=== PATIENT | female | born 1950 | race Caucasian/White ===

== ENCOUNTER 2016-10-01 12:18 | Day surgery (SDC) | payer MEDICARE ==
[~2016-10-01 12:18] MED LIST: Buffered Lidocaine 1% SYRIN* 3 ML/SYR SYRINGE INTRADERM ONE; Famotidine IV* 10 MG/ML 2 ML (20 mg) IV ONE; Glycopyrrolate IV* 0.2 MG/ML 1 ML VIAL ONE; KETAMINE HCL* 50 MG/ML 10 ML VIAL ONE; Midazolam* 1 MG/ML 5 ML VIAL (5 MG) ONE; Morphine INJ* 2 MG/ML 1 ML SYRINGE IV PRN; Neostigmine Methylsulfate* 2 MG/2 ML SYRINGE ONE; PROCHLORPERAZINE INJ 5 MG/ML 2 ML VIAL IV PRN; fentaNYL* 50 MCG/ML 2 ML VIAL (100 MCG VIAL) IV PRN; fentaNYL* 50 MCG/ML 2 ML VIAL (100 MCG VIAL) ONE; oxyCODONE/Acetamin 5/325 MG* TAB PO PRN
[2016-10-01] MEDS ORDERED: Propofol* 10 MG/ML 20 ML BTL IV PUSH ONE (12:33)
[2016-10-01] MEDS ORDERED: Lidocaine 2% PF* 5 ML VIAL ONE (12:33)
[2016-10-01] MEDS ORDERED: Famotidine IV* 10 MG/ML 2 ML (20 mg) ONE (12:35)
[2016-10-01] MEDS ORDERED: Clindamycin 900 MG IVPREMIX(* 900 MG/50 ML SDV IV ONE (12:35)
[2016-10-01] MEDS ORDERED: Lidocaine 1% INJ* 10 MG/ML 30 ML SDV ONE (13:04)
--- NOTE | 2016-10-01 14:45 | RAD ---
INDICATION: Central line placement COMPARISON: PET scan September 20, 2016 TECHNIQUE: An AP portable view obtained at 1425 hours is submitted. FINDINGS: Bones/Soft Tissues: There are no acute bony findings. There is left-sided PowerPort catheter terminating in the superior vena cava Cardiomediastinal: The heart is normal in size. There is a large retrocardiac density compatible with a partially intrathoracic stomach. Lungs: There are no infiltrates. There is no pneumothorax. Pleura: There are no pleural effusions. Other: None IMPRESSION: EXPECTED POSITION OF THE LEFT POWERPORT CATHETER. NO PNEUMOTHORAX. LUNGS CLEAR.
--- NOTE | 2016-10-01 14:47 | RAD ---
INDICATION: Central line placement COMPARISON: None FINDINGS: 35.1 seconds of fluoroscopy were provided for the surgical department. Fluoroscopic spot imaging of the chest were obtained for operative control and show an expected course of the right-sided central venous catheter. A follow-up chest x-ray is pending . CPT II Codes: 6045F (fluoro time doc)
[2016-10-01 15:01] VITALS: BP 145/74
--- NOTE | 2016-10-02 16:06 | OP ---
OPERATIVE REPORT: DATE OF OPERATION: 10/01/16 - [facility] DATE OF : 46 SURGEON: Vasiliy Cobb MD. ANESTHESIOLOGIST: Dr. Flood. ANESTHESIA: Local with monitored anesthesia care. PRE-OP DIAGNOSIS: Pancreatic cancer. POST-OP DIAGNOSIS: Pancreatic cancer. OPERATIVE PROCEDURE: Insertion of an 8-Tongan left chest wall percutaneously placed PowerPort. ESTIMATED BLOOD LOSS: Minimal. SPECIMENS: None. WOUND CLASSIFICATION: One. DRAINS: None. COMPLICATIONS: None. DESCRIPTION OF PROCEDURE: Written informed consent was obtained, the left and right chest were marked with indelible ink and preoperative antibiotics were administered. The patient was taken to the operating room and placed in the supine position. Sequential compression devices and a warming blanket were applied. The left and right chest and neck were prepped and draped in the usual sterile fashion. A time-out verification was completed. The patient was placed in Trendelenburg position and 1% lidocaine was used to infiltrate an area just below the left mid clavicular area and using an 18- gauge Cook needle, the subclavian vein was punctured on the first pass. There was good blood return, the guidewire was inserted without difficulty, confirmed to be into the superior vena cava by fluoroscopy. Next, a transverse incision was made several centimeters below the puncture site and a subcutaneous pocket was made inferior to this large enough to fit the port. The catheter was then tunneled from the puncture site to the pocket without difficulty. Next, using the sheath dilator peel-away system, the catheter was inserted over the guidewire into the central venous system and adjusted to be just above the junction of the superior vena cava and right atrium by fluoroscopy. The catheter was cut to the appropriate length and attached to the port which was placed into the pocket. It was flushed with saline and it withdrew blood well. Heparin was then used to flush the catheter. The port was secured in 2 places and the subcutaneous tissue with 3-0 Prolene sutures. Hemostasis was assured. Both the incision was closed with 3-0 and 4- 0 Polysorb suture. Steri-Strips and sterile occlusive dressings were applied. The patient tolerated the procedure well and was taken to recovery room in stable condition. Postprocedural chest x-ray showed the catheter to be in good position without evidence of pneumothorax. CC: [facility]; Dr. Makayla Ryder* [id number]/[facility] #: [id number] JESUSITA
== END 2016-10-01 15:17 | disposition home or self-care (01) ==
LOC: OR 12:18
PROVIDERS: ATTEND Surgery
DX: C25.9 Malignant neoplasm of pancreas, unspecified (principal); C78.7 Secondary malignant neoplasm of liver and intrahepatic bile duct; K21.9 Gastro-esophageal reflux disease without esophagitis; Z87.891 Personal history of nicotine dependence
CPT/HCPCS: 71010; 76000; C1788; J1642; J2001; J2250; J2704; J3010

== ENCOUNTER 2016-10-18 17:13 | Emergency (ER) | payer MEDICARE, OTHER ==
--- NOTE | 2016-10-18 19:22 | RAD ---
HISTORY: Fever COMPARISONS: October 01, 2016 VIEWS:1: Single frontal portable view of the chest at 7:09 PM FINDINGS: LINES AND TUBES: There is left-sided chest port from a subclavian approach with the tip overlying the superior vena cava CARDIOMEDIASTINAL SILHOUETTE: The cardiomediastinal silhouette is normal for portable technique. PLEURA: The costophrenic angles are sharp. No pleural abnormalities are noted. LUNG PARENCHYMA: The lungs are clear. ABDOMEN: There is a large hiatal hernia BONES AND SOFT TISSUES: No bone or soft tissue abnormalities are noted. IMPRESSION: 1. LINES AND TUBES ABOVE. 2. HIATAL HERNIA. 3. NO ACTIVE CARDIOPULMONARY DISEASE
[2016-10-18] MEDS ORDERED: Vancomycin(*) 1,000 MG in NS 0.9% 250 ML* 250 ML IVPB ONE (19:41)
[2016-10-18] MEDS ORDERED: NS 0.9% 1000 ML* 2,000 ML IV ONE (19:41)
[2016-10-18] MEDS ORDERED: Acetaminophen TAB* 325 MG PO ONE (19:41)
[2016-10-18] MEDS ORDERED: Ertapenem* 1 GM in NS 0.9% 50 ML* 50 ML IVPB ONE (19:43)
[2016-10-18 20:42] LABS: Hematocrit 31 % (35-47); Mean Corpuscular HGB Conc 33 g/dl (31-36); Mean Corpuscular Hemoglobin 26 pg (27-31); Mean Corpuscular Volume 81 fL (80-97); Mean Platelet Volume 8 um3 (7.4-10.4); Red Cell Distribution Width 15 % (10.5-15)
[2016-10-18 20:44] LABS: Comments Flag Yes; White Blood Count 3.1 10^3/ul (3.5-10.8)
[2016-10-18 21:00] LABS: BUN/Creatinine Ratio 23.4 (8-20); Calcium 9.5 mg/dL (8.6-10.3); EGFR Non-African American 92.6 (>60); Globulin 3.2 g/dL (2-4); Potassium 4.4 mmol/L (3.5-5.0); Total Bilirubin 1.1 mg/dL (0.2-1.0); Total Protein 6.2 g/dL (6.4-8.9)
[2016-10-18 21:02] LABS: Troponin I 0.01 ng/mL (<0.04)
[2016-10-18 21:45] LABS: Urine Bacteria 1+ (Absent); Urine Bilirubin Negative (Negative); Urine Glucose Negative (Negative); Urine Nitrite Negative (Negative)
[2016-10-18] MEDS ORDERED: NS 0.9% 250 ML* 250 ML ONE (22:23)
[2016-10-18] MEDS ORDERED: NS 0.9% 50 ML* 50 ML ONE (22:23)
[2016-10-18] MEDS ORDERED: Levofloxacin TAB* 500 MG PO ONE (22:25)
--- NOTE | 2016-10-18 23:43 | ED ---
Bala Velez Aidan, scribed for Jose Schultz on 10/18/16 at 1951 . HPI Febrile Illness - HPI Summary HPI Summary: 65 y/o female presents to the ED with a complaint of an acute, constant, mild fever of 100.5 that began this morning. 2 days ago, she was administered 75% of her chemotherapy for her metastatic pancreatic cancer. She was told by her oncologist to come to the ED if she gets a fever of 100.5 or higher. Associated symptoms include some mild (3/10) pain between the shoulder blades and some lower abdominal pain. She denies any CP, SOB, diarrhea, or emesis. - History of Current Complaint Chief Complaint: EDFever Time Seen by Provider: 10/18/16 19:12 Hx Obtained From: Patient Onset/Duration: Started Hours Ago, Still Present Time of Onset: 09:00 - she first took her temperature around 0900 this morning. Timing: Constant Initial Severity: Mild Current Severity: Mild Pain Intensity: 3 Pain Scale Used: 0-10 Numeric Aggravating Factors: Unknown Alleviating Factors: Other: - unknown Associated Signs and Symptoms: Other: - some pain between the shoulder blades and some abdominal pain Related History: Exposure to: - chemotherapy 2 days ago - Risk Factors Serious Bacterial Infection Risk Factors: Chemotherapy - Allergy/Home Medications Allergies/Adverse Reactions: Allergies Allergy/AdvReac Type Severity Reaction Status Date / Time Penicillin G Allergy Unknown See Comment Verified 10/01/16 12:51 PMH/Surg Hx/FS Hx/Imm Hx Endocrine/Hematology History: Denies: Hx Diabetes Cardiovascular History: Denies: Hx Hypertension, Hx Pacemaker/ICD Respiratory History: Denies: Hx Asthma GI History: Reports: Hx Hiatal Hernia, Hx Ulcer - stomach Sensory History: Reports: Hx Cataracts - left, Hx Contacts or Glasses - glasses Denies: Hx Hearing Aid Opthamlomology History: Reports: Hx Cataracts - left, Hx Contacts or Glasses - glasses Psychiatric History: Denies: Hx Panic Disorder - Cancer History Cancer Type, Location and Year: NEW Hx Chemotherapy: No - having power port placed - Surgical History Surgery Procedure, Year, and Place: TONSILS,GB,APPY Hx Anesthesia Reactions: No Infectious Disease History: No Infectious Disease History: Denies: Traveled Outside the [place] in Last 30 Days - Family History Known Family History: Positive: Other - [place] - Social History Occupation: Employed Full-time Lives: With Family Alcohol Use: None Substance Use Type: Reports: None Smoking Status (MU): Former Smoker Review of Systems Positive: Fever - 100.5. Negative: Chills, Fatigue, Skin Diaphoresis Eyes: Negative ENT: Negative Cardiovascular: Negative Respiratory: Negative Positive: Abdominal Pain. Negative: Vomiting, Diarrhea, Nausea Genitourinary: Negative Positive: Arthralgia - pain between shoulder blades. Negative: Myalgia, Decreased ROM, Edema Skin: Negative Neurological: Negative Psychological: Normal All Other Systems Reviewed And Are Negative: Yes Physical Exam Triage Information Reviewed: Yes Vital Signs On Initial Exam: Initial Vitals Temp Pulse Resp BP 100.2 F 125 20 154/69 10/18/16 17:15 10/18/16 17:15 10/18/16 17:15 10/18/16 17:15 Vital Signs Reviewed: Yes Appearance: Positive: Well-Appearing, No Pain Distress Skin: Positive: Warm, Skin Color Reflects Adequate Perfusion, Dry Head/Face: Positive: Normal Head/Face Inspection Eyes: Positive: Normal ENT: Positive: Normal ENT inspection Neck: Positive: Supple, Nontender Respiratory/Lung Sounds: Positive: Clear to Auscultation, Breath Sounds Present Cardiovascular: Positive: Other - catheter on left chest. Negative: RRR - tachycardia Abdomen Description: Positive: Nontender, Soft Bowel Sounds: Positive: Present Musculoskeletal: Positive: Normal Neurological: Positive: Normal, Alert, Oriented to Person Place, Time Psychiatric: Positive: Affect/Mood Appropriate - Cristela Coma Scale Coma Scale Total: 15 Diagnostics - Vital Signs Vital Signs Temp Pulse Resp BP Pulse Ox 10/18/16 19:08 100.8 F 110 20 158/78 99 10/18/16 19:00 107 17 142/68 99 10/18/16 18:58 100.8 F 110 20 158/78 99 10/18/16 18:51 108 23 158/78 99 10/18/16 18:50 111 99 10/18/16 17:15 100.2 F 125 20 154/69 - Laboratory Lab Results: Lab Results 10/18/16 10/18/16 10/18/16 Range/Units 20:25 20:25 20:25 WBC 3.1 L (3.5-10.8) 10^3/ul RBC 3.80 L (4.0-5.4) 10^6/ul Hgb 10.0 L (12.0-16.0) g/dl Hct 31 L (35-47) % MCV 81 (80-97) fL MCH 26 L (27-31) pg MCHC 33 (31-36) g/dl RDW 15 (10.5-15) % Plt Count 128 L (150-450) 10^3/ul MPV 8 (7.4-10.4) um3 Neut % (Auto) 75.6 (38-83) % Lymph % (Auto) 21.0 L (25-47) % [place] % (Auto) 1.1 (1-9) % Eos % (Auto) 2.1 (0-6) % Baso % (Auto) 0.2 (0-2) % Absolute Neuts (auto) 2.4 (1.5-7.7) 10^3/ul Absolute Lymphs (auto) 0.7 L (1.0-4.8) 10^3/ul Absolute Monos (auto) 0 (0-0.8) 10^3/ul Absolute Eos (auto) 0.1 (0-0.6) 10^3/ul Absolute Basos (auto) 0 (0-0.2) 10^3/ul Absolute Nucleated RBC 0 10^3/ul Nucleated RBC % 0 INR (Anticoag Therapy) 0.99 (0.89-1.11) APTT 28.7 (26.0-36.3) seconds Sodium 133 (133-145) mmol/L Potassium 4.4 (3.5-5.0) mmol/L Chloride 101 (101-111) mmol/L Carbon Dioxide 24 (22-32) mmol/L Anion Gap 8 (2-11) mmol/L BUN 15 (6-24) mg/dL Creatinine 0.64 (0.51-0.95) mg/dL Est GFR ( Amer) 119.0 (>60) Est GFR (Non-Af Amer) 92.6 (>60) BUN/Creatinine Ratio 23.4 H (8-20) Glucose 119 H (70-100) mg/dL Lactic Acid (0.5-2.0) mmol/L Calcium 9.5 (8.6-10.3) mg/dL Total Bilirubin 1.10 H (0.2-1.0) mg/dL AST 222 H (13-39) U/L ALT 205 H (7-52) U/L Alkaline Phosphatase 141 H (34-104) U/L Troponin I 0.01 (<0.04) ng/mL Total Protein 6.2 L (6.4-8.9) g/dL Albumin 3.0 L (3.2-5.2) g/dL Globulin 3.2 (2-4) g/dL Albumin/Globulin Ratio 0.9 L (1-3) Urine Color Urine Appearance Urine pH (5-9) Ur Specific [place] (1.010-1.030) Urine Protein (Negative) Urine Ketones (Negative) Urine Blood (Negative) Urine Nitrate (Negative) Urine Bilirubin (Negative) Urine Urobilinogen (Negative) Ur Leukocyte Esterase (Negative) Urine WBC (Auto) (Absent) Urine RBC (Auto) (Absent) Ur Squamous Epith Cells (Absent) Urine Bacteria (Absent) Urine Glucose (Negative) Influenza A (Rapid) (Negative) Influenza B (Rapid) (Negative) 10/18/16 10/18/16 10/18/16 Range/Units 20:25 20:31 21:20 WBC (3.5-10.8) 10^3/ul RBC (4.0-5.4) 10^6/ul Hgb (12.0-16.0) g/dl Hct (35-47) % MCV (80-97) fL MCH (27-31) pg MCHC (31-36) g/dl RDW (10.5-15) % Plt Count (150-450) 10^3/ul MPV (7.4-10.4) um3 Neut % (Auto) (38-83) % Lymph % (Auto) (25-47) % [place] % (Auto) (1-9) % Eos % (Auto) (0-6) % Baso % (Auto) (0-2) % Absolute Neuts (auto) (1.5-7.7) 10^3/ul Absolute Lymphs (auto) (1.0-4.8) 10^3/ul Absolute Monos (auto) (0-0.8) 10^3/ul Absolute Eos (auto) (0-0.6) 10^3/ul Absolute Basos (auto) (0-0.2) 10^3/ul Absolute Nucleated RBC 10^3/ul Nucleated RBC % INR (Anticoag Therapy) (0.89-1.11) APTT (26.0-36.3) seconds Sodium (133-145) mmol/L Potassium (3.5-5.0) mmol/L Chloride (101-111) mmol/L Carbon Dioxide (22-32) mmol/L Anion Gap (2-11) mmol/L BUN (6-24) mg/dL Creatinine (0.51-0.95) mg/dL Est GFR ( Amer) (>60) Est GFR (Non-Af Amer) (>60) BUN/Creatinine Ratio (8-20) Glucose (70-100) mg/dL Lactic Acid 0.7 (0.5-2.0) mmol/L Calcium (8.6-10.3) mg/dL Total Bilirubin (0.2-1.0) mg/dL AST (13-39) U/L ALT (7-52) U/L Alkaline Phosphatase (34-104) U/L Troponin I (<0.04) ng/mL Total Protein (6.4-8.9) g/dL Albumin (3.2-5.2) g/dL Globulin (2-4) g/dL Albumin/Globulin Ratio (1-3) Urine Color Yellow Urine Appearance Clear Urine pH 5.0 (5-9) Ur Specific [place] 1.024 (1.010-1.030) Urine Protein Negative (Negative) Urine Ketones 1+ H (Negative) Urine Blood Negative (Negative) Urine Nitrate Negative (Negative) Urine Bilirubin Negative (Negative) Urine Urobilinogen Negative (Negative) Ur Leukocyte Esterase Trace H (Negative) Urine WBC (Auto) 1+(6-10/hpf) H (Absent) Urine RBC (Auto) Trace(0-2/hpf) (Absent) Ur Squamous Epith Cells Present H (Absent) Urine Bacteria 1+ H (Absent) Urine Glucose Negative (Negative) Influenza A (Rapid) Negative (Negative) Influenza B (Rapid) Negative (Negative) Result Diagrams: 10/18/16 20:25 10/18/16 20:25 Lab Statement: Any lab studies that have been ordered have been reviewed, and results considered in the medical decision making process. - Radiology CHEST XR Xray Interpretation: No Acute Changes - IMPRESSION: 1. LINES AND TUBES ABOVE. 2. HIATAL HERNIA. 3. NO ACTIVE CARDIOPULMONARY DISEASE Radiology Interpretation Completed By: Radiologist Course/Dx - Course Course Of Treatment: This is a 65 y/o female with a mild fever of 100.5. She was given 75% of her chemotherapy for her pancreatic cancer 2 days ago and was told by her oncologist to be seen if she develops a fever of 100.5 or higher. Chest x-ray results did not indicate any changes. The patient will be diagnosed with a fever and a UTI. d/w oncologist who recommended to discharge the pt home on abx. - Diagnoses Provider Diagnoses: UTI (urinary tract infection), Fever - Provider Notifications Discussed Care Of Patient With: Dr. Asencio (Hospitalist) Time Discussed With Above Provider: 21:53 - Dr. Asencio advised speaking with cardiology and oncology. Discharge - Discharge Plan Condition: Stable Disposition: HOME Discharge Disposition Comment: Please follow up with your primary care provider within 2 days. Prescriptions: Levofloxacin TAB* [Levaquin TAB*] 500 mg PO DAILY #4 tab Patient Education Materials: Fever in Adults (ED), Urinary Tract Infection in Women (ED) Referrals: Lisandra Jones MD [Primary Care Provider] - The documentation as recorded by the Bala granger Aidan accurately reflects the service I personally performed and the decisions made by Antoine ortiz Emmanuel.
[2016-10-19 00:49] VITALS: BP 145/64
== END 2016-10-19 00:48 | disposition home or self-care (01) ==
LOC: ED 17:13
DX: N39.0 Urinary tract infection, site not specified (principal); K44.9 Diaphragmatic hernia without obstruction or gangrene; R50.9 Fever, unspecified; Z87.891 Personal history of nicotine dependence
CPT/HCPCS: 36415; 71010; 80053; 81003; 81015; 83605; 84484; 85025; 85610; 85730; 87040; 87086; 87502; 96365; 99283; A9270-GY; J1335; J3370

== ENCOUNTER 2017-03-22 23:57 | Emergency (ER) | payer MEDICARE, OTHER ==
[2017-03-23] MEDS ORDERED: HYDROmorphone INJ* 1 MG/ML CARPUJECT SYRINGE IV ONE (00:21)
[2017-03-23] MEDS ORDERED: Ondansetron INJ* 2 MG/ML VIAL IV ONE (00:21)
[2017-03-23] MEDS ORDERED: NS 0.9% 1000 ML* 1,000 ML IV ONE (00:21)
[2017-03-23 01:07] LABS: Hematocrit 29 % (35-47); Hemoglobin 9.6 g/dl (12.0-16.0); Mean Corpuscular HGB Conc 34 g/dl (31-36); Mean Corpuscular Hemoglobin 31 pg (27-31); Mean Corpuscular Volume 91 fL (80-97); Mean Platelet Volume 8 um3 (7.4-10.4); Red Blood Count 3.14 10^6/ul (4.0-5.4); Red Cell Distribution Width 18 % (10.5-15)
[2017-03-23 01:14] LABS: Comments Flag Yes
[2017-03-23 01:15] LABS: White Blood Count 3.4 10^3/ul (3.5-10.8)
[2017-03-23 01:27] LABS: Albumin 2.8 g/dL (3.2-5.2); Calcium 8.7 mg/dL (8.6-10.3); EGFR African American 89.2 (>60); EGFR Non-African American 69.3 (>60); Globulin 2.9 g/dL (2-4); Potassium 3.6 mmol/L (3.5-5.0); Total Bilirubin 0.5 mg/dL (0.2-1.0); Total Protein 5.7 g/dL (6.4-8.9)
[2017-03-23] MEDS ORDERED: Iohexol 300* (CONTRAST) 10 ML SDV IV ONE (02:00)
[2017-03-23 02:02] LABS: BUN/Creatinine Ratio 12.2 (8-20)
[2017-03-23] MEDS ORDERED: HYDROmorphone INJ* 1 MG/ML CARPUJECT SYRINGE IV SLOW PU ONE (02:52)
[2017-03-23 04:28] LABS: Urine Bacteria Absent (Absent); Urine Bilirubin Negative (Negative); Urine Glucose Negative (Negative); Urine Nitrite Negative (Negative)
[2017-03-23] MEDS ORDERED: Tamsulosin CAP* 0.4 MG PO ONE (05:11)
[2017-03-23 05:33] VITALS: BP 120/61
--- NOTE | 2017-03-23 06:28 | ED ---
Lloyd Velez Rebecca, scribed for Javier Schultzuel on 03/23/17 at 0023 . Abdominal Pain/Female - HPI Summary HPI Summary: Pt is a 66 y/o F who presents to ED c/o severe abdominal pain. Pain began yesterday and has been intermittent since onset, returning tonight at 1830. Yesterday, pt took an Oxycodone which resolved sx though, tonight, 2 Oxycodone have not changed sx. Pain is in the LLQ with radiation to the back and is ranked 11/10 when asked. Sx aggravated and alleviated by nothing. Denies N/V/D, constipation and rash. Pt was referred to [facility] [place] by Dr. Morocho and she is currently undergoing chemotherapy Tx for pancreatic CA, with her last session being [address] was about 1 month ago. No PMHx kidney stones. - History of Current Complaint Chief Complaint: EDAbdPain Stated Complaint: ABD AND BACK PAIN Time Seen by Provider: 03/23/17 00:07 Hx Obtained From: Patient Onset/Duration: Lasting Days - Yesterday, Still Present Timing: Intermittent Episode Lasting Severity Currently: Severe Pain Intensity: 10 Pain Scale Used: 0-10 Numeric Location: Discrete At: LLQ Radiates: Yes Radiates to: Back Aggravating Factor(s): Nothing Alleviating Factor(s): Nothing Associated Signs and Symptoms: Positive: Negative. Negative: Constipation, Nausea, Vomiting, Diarrhea Allergies/Adverse Reactions: Allergies Allergy/AdvReac Type Severity Reaction Status Date / Time Penicillin G Allergy Unknown See Comment Verified 01/31/17 07:38 PMH/Surg Hx/FS Hx/Imm Hx Endocrine/Hematology History: Denies: Hx Diabetes Cardiovascular History: Denies: Hx Hypertension, Hx Pacemaker/ICD Respiratory History: Denies: Hx Asthma GI History: Reports: Hx Hiatal Hernia, Hx Ulcer - stomach History: Denies: Hx Renal Disease Sensory History: Reports: Hx Cataracts - left, Hx Contacts or Glasses - glasses Denies: Hx Hearing Aid Opthamlomology History: Reports: Hx Cataracts - left, Hx Contacts or Glasses - glasses Psychiatric History: Denies: Hx Panic Disorder - Cancer History Cancer Type, Location and Year: pancreas Hx Chemotherapy: No - having power port placed - Surgical History Surgery Procedure, Year, and Place: TONSILS,GB,APPY Hx Anesthesia Reactions: No Infectious Disease History: No Infectious Disease History: Denies: Traveled Outside the [place] in Last 30 Days - Family History Known Family History: Positive: Other - [place] - Social History Alcohol Use: None Substance Use Type: Reports: None Smoking Status (MU): Former Smoker Review of Systems Positive: Abdominal Pain, Other - NEGATIVE: Constipation. Negative: Vomiting, Diarrhea, Nausea Negative: Rash All Other Systems Reviewed And Are Negative: Yes Physical Exam - Summary Physical Exam Summary: Appearance: Well appearing Skin: warm, dry, reflects adequate perfusion Head/face: normal Eyes: EOMI, WILY ENT: normal Neck: supple, nontender Respiratory: CTA, breath sounds present Cardiovascular: RRR, pulses symmetrical Abdomen: tenderness in the LLQ, soft Bowel: present Musculoskeletal: normal, strength/ROM intact Neuro: normal, sensory motor intact, A&Ox3 Triage Information Reviewed: Yes Vital Signs On Initial Exam: Initial Vitals Temp Pulse Resp BP Pulse Ox 98.1 F 79 14 150/56 98 03/23/17 00:02 03/23/17 00:02 03/23/17 00:02 03/23/17 00:02 03/23/17 00:02 Vital Signs Reviewed: Yes Diagnostics - Vital Signs Vital Signs Temp Pulse Resp BP Pulse Ox 03/23/17 00:02 98.1 F 79 14 150/56 98 - Laboratory Result Diagrams: 03/23/17 00:55 03/23/17 00:55 Lab Statement: Any lab studies that have been ordered have been reviewed, and results considered in the medical decision making process. - CT CT Abd/Pel CT Interpretation Completed By: Radiologist - 4 mm stone appearing at left UVJ and causing minimal hydronephrosis. Small left renal stones and a 6 mm dependent stone in left renal pelvis. Cortical thinning lower pole right kidney. Trace right pleural effusion, simliar to prior exam. New trace left pleural effusion. Large hiatal hernia again seen, upper extent incompletely visualized. Diverticulosis colon without acute diverticulitis. No bowel obstruction, colitis, or free air. Appendix not seen. Trace ascites. Unremarkable pancreas. Gallbladder not seen. Enlarged uterus. Small right inguinal region hernia and tiny unmbilical hernia, each contianing fat. ED physician reviewed radiology report and agrees. Re-Evaluation - Re-Evaluation First Eval Re-Evaluation Time: 03:58 Comment: Discussed CT results. Abdominal Pain Fem Course/Dx - Course Course Of Treatment: Pt is a 66 y/o F who presents to ED c/o intermirrent severe abdominal pain since yesterday, returning tonight at 1830. Yesterday, pt took an Oxycodone which resolved sx though, tonight, 2 Oxycodone have not changed sx. Pain is in the LLQ with radiation to the back and is ranked 11/10 when asked. Denies N/V/D, constipation and rash. Pt was referred to [facility] tonight by Dr. Morocho and she is currently undergoing chemotherapy Tx for pancreatic CA, with her last session being 2 days ago. No PMHx kidney stones. UA is negative for UTI, Troponin of 0.00. CT Abd/Pel reveals 4 mm stone appearing at left UVJ and causing minimal hydronephrosis. In the ED course, pt received Zofran, Flomax, Dilaudid and fluids. She will be D/C to home with Dx of renal calculi with Rx for Flomax and a follow up with her PCP and urology. She understands and agrees. Jay noted. Elevated BP noted. - Diagnoses Provider Diagnoses: Renal calculi Discharge - Discharge Plan Condition: Stable Disposition: HOME Prescriptions: Tamsulosin CAP* [Flomax CAP*] 0.4 mg PO DAILY #20 cap Patient Education Materials: Kidney Stones (ED) Referrals: Sharmin Malone MD [Primary Care Provider] - 3 Days Jone Solo MD [Medical Doctor] - The documentation as recorded by the Lloyd granger Rebecca accurately reflects the service I personally performed and the decisions made by , Jose Schultz.
--- NOTE | 2017-03-23 08:21 | RAD ---
CLINICAL HISTORY: Left lower quadrant tenderness, history of pancreatic cancer COMPARISON: January 31, 2017 TECHNIQUE: Multiple contiguous axial CT scans were obtained of the abdomen and pelvis after the administration of intravenous contrast. Coronal and sagittal multiplanar reformations are submitted for review. Oral contrast was administered. Delayed images were obtained through the abdomen and pelvis. FINDINGS: LUNG BASES: There is a large right-sided hiatal hernia LIVER: The liver is heterogeneous with patchy hypoattenuation within the right lobe, best seen on axial image 21 and 25. This has developed from the most recent previous examination. BILE DUCTS: There is intrahepatic biliary dilatation. There is dilatation of the common duct extending to the ampulla. This is progressed from the previous examination. GALLBLADDER: The gallbladder is not clearly visualized. PANCREAS: The pancreas is normal, without mass or ductal dilatation. SPLEEN: Normal in size and appearance. UPPER GI TRACT: Evaluation of the gastrointestinal tract is limited by incomplete gastric distention. As noted above, there is a large saroj hernia containing much of the body of the stomach. SMALL BOWEL AND MESENTERY: The small bowel is normal in contour, course, and caliber. There is no obstruction or dilatation. COLON: There are multiple diverticula of the sigmoid colon. There is no pericolonic inflammatory change. ADRENALS: Normal bilaterally. KIDNEYS: There are left renal stones measuring up to 0.7 cm in size. There is pelviectasis and hydroureter on the left, with a 0.5 cm calculus of the left UVJ. BLADDER: The bladder isn't completely distended. As noted above, there is a 0.4 cm calculus of the left UVJ. PELVIC ORGANS: The uterus is diffusely heterogeneously enlarged congested of fibroids. AORTA: There is calcific atherosclerotic disease of the abdominal aorta and its branches, without aneurysmal dilatation IVC: Unremarkable LYMPH NODES: There is no lymphadenopathy by size criteria. ABDOMINAL WALL: There is a small fat-containing right inguinal hernia. There is a small fat-containing umbilical hernia. BONES AND SOFT TISSUES: Degenerative changes are noted of the spine OTHER: There is trace amount of ascites IMPRESSION: 1. LEFT NEPHROLITHIASIS, INCLUDING A 0.4 CM LEFT UVJ CALCULUS, WITH LEFT-SIDED HYDRONEPHROSIS. 2. LARGE HIATAL HERNIA. 3. DIVERTICULOSIS WITHOUT PERICOLONIC INFLAMMATORY CHANGE. 4. TRACE ASCITES. 5. BILIARY DILATATION, INCREASING FROM JANUARY 31, 2017. 6. PATCHY HETEROGENEOUS HYPOATTENUATION OF THE LIVER. 7. ENLARGED UTERUS SUGGESTIVE OF UTERINE FIBROIDS.
== END 2017-03-23 05:49 | disposition home or self-care (01) ==
LOC: ED 23:57
DX: N20.0 Calculus of kidney (principal); R10.32 Left lower quadrant pain; Z87.891 Personal history of nicotine dependence
CPT/HCPCS: 36415; 74177; 80053; 81003; 81015; 83605; 83690; 84484; 85025; 85610; 85730; 87086; 99283; J1170; J2405; Q9967

== ENCOUNTER 2017-04-05 09:18 | Day surgery (SDC) | payer MEDICARE, OTHER ==
--- NOTE | 2017-04-02 22:54 | HP ---
CC: Dr. Makayla Ryder; Dr. Malone * HISTORY AND PHYSICAL: DATE OF PLANNED ADMISSION AND SURGERY: 04/05/17 HISTORY OF PRESENT ILLNESS: Mrs. Hernandez is a 66-year-old white female who is admitted with left ureteral and left renal calculi, for cystoscopy, left ureteroscopy, laser lithotripsy, and left ureteral stent placement. Mrs. Hernandez was diagnosed recently with stage IV pancreatic cancer with liver metastasis. She also had partial obstruction of her duodenum from her tumor that was managed by balloon dilation at the [facility]. She is on systemic chemotherapy and followed by Dr. Ryder. She presented to the emergency room on 03/23/17 with acute left abdominal and flank pain. She denied having any fever or chills. She had a CT of the abdomen and pelvis with oral and IV contrast. The study showed multiple liver lesions, a 7 mm calculus in the left kidney, and a 5 mm calculus at the left ureterovesical junction. She was managed conservatively with pain medication and referred to our office for evaluation. She has been feeling comfortable from her kidney and has had no recurrence of the acute pain. The patient had a renal ultrasound in our office. The study showed mild left hydronephrosis and a 1 cm calculus at the left ureteropelvic junction, and there was a 6 mm calculus in the distal left ureter, about 2 cm from the ureterovesical junction. PAST MEDICAL HISTORY AND SYSTEM REVIEW: As described above. MEDICATIONS: The patient is on systemic chemotherapy. She is on : 1. Prilosec 20 mg twice a day. 2. Lasix 10 mg daily. 3. Reglan 10 mg 4 times per day. 4. Oxycodone as needed for pain. 5. She is anticoagulated with Lovenox. ALLERGIES: She is allergic to PENICILLIN. PHYSICAL EXAMINATION GENERAL: White female, who looks pale and older than her age. VITAL SIGNS: Blood pressure 140/80, pulse of 76, temperature of 96. LUNGS: Clear. HEART: Regular and rhythmic, no murmurs. ABDOMEN: Soft. No tenderness. There is mild left CVA tenderness. IMPRESSION: 1. Left renal colic caused by a 1 cm calculus at the left ureteropelvic junction and a 6 mm calculus in the distal left ureter. 2. Metastatic pancreatic carcinoma, on systemic chemotherapy. PLAN/RECOMMENDATIONS: Plan is for left ureteroscopy, laser lithotripsy of the distal left ureteral calculus, and placement of left ureteral stent. Considering the poor prognosis with her metastatic pancreatic carcinoma, the left stent will be kept on a long-term basis and will not pursue the treatment of the renal calculus at this time. I discussed the above plans with the patient and all her questions were answered. [id number]/[facility] #: [id number] MTDD
[~2017-04-05 09:18] MED LIST changes: +Buffered Lidocaine 0.9% SYRIN* 5 ML/SYR SYRINGE INTRADERM ONE; -Buffered Lidocaine 1% SYRIN* 3 ML/SYR SYRINGE INTRADERM ONE; +Dexamethasone IV* 4 MG/ML 1 ML (4 MG) IV SLOW PU ONE; -Glycopyrrolate IV* 0.2 MG/ML 1 ML VIAL ONE; -KETAMINE HCL* 50 MG/ML 10 ML VIAL ONE; -Midazolam* 1 MG/ML 5 ML VIAL (5 MG) ONE; -Morphine INJ* 2 MG/ML 1 ML SYRINGE IV PRN; -Neostigmine Methylsulfate* 2 MG/2 ML SYRINGE ONE; -PROCHLORPERAZINE INJ 5 MG/ML 2 ML VIAL IV PRN; -fentaNYL* 50 MCG/ML 2 ML VIAL (100 MCG VIAL) IV PRN; -fentaNYL* 50 MCG/ML 2 ML VIAL (100 MCG VIAL) ONE; -oxyCODONE/Acetamin 5/325 MG* TAB PO PRN
[2017-04-05] MEDS ORDERED: Dexamethasone IV* 4 MG/ML 1 ML (4 MG) ONE (09:40)
[2017-04-05] MEDS ORDERED: Famotidine IV* 10 MG/ML 2 ML (20 mg) ONE (09:41)
[2017-04-05] MEDS ORDERED: Buffered Lidocaine 0.9% SYRIN* 5 ML/SYR SYRINGE ONE (09:41)
[2017-04-05] MEDS ORDERED: Levofloxacin 750 MG IVPREMIX(* 750 MG/150 ML BAG ONE (09:41)
[2017-04-05] MEDS ORDERED: Iohexol 180 (CONTRAST) 10 ML SDV IV ONE (10:36)
[2017-04-05] MEDS ORDERED: oxyCODONE/Acetamin 5/325 MG* TAB PO PRN (10:38)
[2017-04-05] MEDS ORDERED: fentaNYL* 50 MCG/ML 2 ML VIAL (100 MCG VIAL) IV PRN (10:38)
[2017-04-05] MEDS ORDERED: Ondansetron INJ* 2 MG/ML VIAL IV PRN (10:38)
[2017-04-05] MEDS ORDERED: DiMENhydriNATE IV* 50 MG/ML VIAL IV PUSH PRN (10:38)
[2017-04-05] MEDS ORDERED: Propofol* 10 MG/ML 20 ML BTL IV PUSH ONE (10:45)
[2017-04-05] MEDS ORDERED: Midazolam* 1 MG/ML 5 ML VIAL (5 MG) ONE (10:45)
[2017-04-05] MEDS ORDERED: Ondansetron INJ* 2 MG/ML VIAL ONE (10:45)
[2017-04-05] MEDS ORDERED: Chloroprocaine 2%* 20 ML VIAL ONE (10:45)
[2017-04-05 14:03] VITALS: BP 137/72
--- NOTE | 2017-04-05 15:07 | RAD ---
INDICATION: Left ureteral stent insertion COMPARISON: None FINDINGS: 5 seconds of fluoroscopy were provided for the urology department. Fluoroscopic spot imaging of the abdomen were obtained for operative control and show placement of a left ureteral stent in expected position . CPT II Codes: 6045F (fluoro time doc)
--- NOTE | 2017-04-06 02:00 | OP ---
CC: Dr. Ryder OPERATIVE REPORT: DATE OF OPERATION: 04/05/17 DATE OF : 46 SURGEON: Jone Solo MD ANESTHESIOLOGIST: Dr. Hernandez. ANESTHESIA: Spinal. PRE-OP DIAGNOSES: 1. Left renal calculus (1 cm). 2. Distal left ureteral calculus (6 mm). POST-OP DIAGNOSES: 1. Left renal calculus (1 cm). 2. Distal left ureteral calculus (6 mm). OPERATIVE PROCEDURE: 1. Cystoscopy. 2. Left ureteroscopy and pyeloscopy. 3. Laser lithotripsy of distal left ureteral calculus. 4. Left retrograde pyelography and placement of left ureteral stent (black silicone, 7-[place], 24-cm long). INDICATION FOR PROCEDURE: Ms. Hernandez is a 66-year-old white female who presented to the emergency room 2 weeks ago with symptoms of left renal colic and was noted on CT to have a 1 cm calculus in the left renal pelvis and an obstructing 6 mm calculus in the distal left ureter. The patient was managed conservatively and was seen in my office few days ago where she had a renal ultrasound, which showed the stones to be in the same position. The patient has stage IV pancreatic carcinoma, has a poor prognosis, and is on chemotherapy. For the above reasons, the plan is to treat the distal left ureteral calculus and to place a left stent and leave the stent on a chronic basis and not to treat the renal calculus at this time. PATHOLOGY: At cystoscopy, the bladder mucosa looked normal. The ureteral orifices looked normal. There was a 6 to 7 mm calculus that was impacted in the distal left ureter. At ureteroscopy, the stone had the gross appearance of calcium oxalate stone. The ureter was dilated. No other calculi were seen in the whole ureteral lumen nor in the renal pelvis or the upper pole calyces. DESCRIPTION OF PROCEDURE: After successful spinal anesthesia, the patient was placed in the lithotomy position and was prepped and draped for a cystoscopy. Cystoscopy was then performed and the bladder inspected. Attempt at introducing a flexible tip guidewire into the left orifice was not initially successful because of the impaction of the stone. The size 6.5 semirigid ureteroscope was then introduced inside the bladder. A flexible tip guidewire was passed through the port of the ureteroscope and was positioned in the distal left ureter. The ureteroscope was then passed over the guidewire and under direct vision, the guidewire was successfully introduced past the stone and into the renal pelvis. The ureteroscope was then removed keeping the guidewire in place. The ureteroscope was then re-introduced inside the left ureter. The calculus was identified. Using 550 micron laser, the stone was fragmented into several pieces. The fragments were then extracted using a basket. The ureteroscope was then introduced into the whole ureter and the renal pelvis. No additional calculi were noted. The ureteroscope was removed and the cystoscope was introduced in the bladder over the guidewire. Retrograde pyelography was performed. A black silicone stent, 24- cm long, 7-[place] was then fed on top of the guidewire and positioned with the proximal end coiling in the renal pelvis and the distal end coiling inside the bladder. The patient tolerated the procedure well and left the operating room in good condition. The plan is to leave the stent in place on a long-term basis. If the patient's prognosis from her pancreatic cancer improves, then the stone will be treated with shockwave lithotripsy followed by stent removal. [id number]/[facility] #: [id number]
== END 2017-04-05 14:20 | disposition home or self-care (01) ==
LOC: OR 09:18
PROVIDERS: ATTEND Urology
DX: N13.2 Hydronephrosis with renal and ureteral calculous obstruction (principal); C25.9 Malignant neoplasm of pancreas, unspecified; C78.7 Secondary malignant neoplasm of liver and intrahepatic bile duct; Z79.01 Long term (current) use of anticoagulants; K21.9 Gastro-esophageal reflux disease without esophagitis
CPT/HCPCS: 74420; 82365; 88300; C1876; J1100; J2250; J2400; J2405; J2704